=== PATIENT | male | born 1995 | race Caucasian/White ===

== ENCOUNTER 2019-09-03 13:30 | Emergency (ER) | payer OTHER ==
[~2019-09-03] VITALS: Ht 188 cm; Wt 61.2 kg
== END 2019-09-03 14:20 | disposition home or self-care (01) ==
LOC: ER 13:30
DX: Z00.00 Encounter for general adult medical examination without abnormal findings (principal); Z91.030 Bee allergy status
CPT/HCPCS: 99282